=== PATIENT | female | born 1970 | race Caucasian/White ===

== ENCOUNTER 2017-08-11 10:05 | Day surgery (SDC) | payer BC ==
[~2017-08-11 10:05] MED LIST: RINGER'S SOLUTION,LACTATED 1,000 ML IV PRN; ceFAZolin SODIUM 1 GM VIAL IV PRN
[2017-08-11] MEDS ORDERED: RINGER'S SOLUTION,LACTATED 1,000 ML IV ONE (11:00)
[2017-08-11] MEDS ORDERED: BUPIVACAINE HCL 50 ML VIAL IJ ONE (11:15)
--- NOTE | 2017-08-11 11:29 | OR ---
Operative Report - Dictated Report Narrative: Date: 08/11/2017 Physician: Lukas Houston M.D. Program Rep: Rodríguez Patton PA-C Preoperative diagnosis: Right long and ring Trigger fingers Postoperative diagnosis: Right long and ring Trigger fingers Procedure: Right long and ring finger A1 marko releases Anesthesia: MAC Plus local Complications: None Estimated blood loss: Minimal Tourniquet time: 9 Minutes with forearm esmarch band Specimens: None Retained implants: None Drains: None Indications: Mrs Bai Is a 46 year-old female who has been followed in my clinic with complaints of trigger fingers. Physical exam as demonstrated triggering of the fingers. Conservative measures have failed including but not limited to passage of time, activity modification, medications, and injections. The risks , benefits, and alternatives were discussed in clinic. The risks being bleeding , infection, nerve, tendon, blood vessel injury, persistent pain, wound competitions, need for additional procedures, and persistent symptoms. Consent was obtained in the clinic. Procedure: After marking the correct extremity in the preoperative holding area, a timeout was performed in the operating room. IV antibiotics consisting of Ancef were administered prior to the procedure. A forearm esmarch tourniquet was applied to the operative upper arm. The arm was exsanguinated and esmarch band was applied 0.5% Marcaine without epinephrine was infused into the projected incision site at the palmar flexion crease over the metacarpal phalangeal joints in line with the digits. Using loupe magnification, a transverse incision in the appropriate palmar flexion crease in line with the digits. Blunt dissection was carried down through the subcutaneous tissues using bipolar cautery for hemostasis. Care was taken to protect the digital nerves. Staying midline along the flexor tendon, the A1 marko was identified. A celeste was made in the proximal edge of the A1 marko and tenotomies were utilized in order to completely transect the A1 marko. Care was to stay midline and avoid transection of the A2 marko. Soft tissues overlying the flexor tendon proximal to the A1 marko were also released ensuring that there were no other compressive structures contributing to the triggering. The fingers were placed through range of motion and demonstrated no additional catching. The tendons were visualized and mobilized out of the wound, and did not demonstrate any gross pathology or masses that required debridement. The tendons were noted to be intact. Once was felt that we had decompressed the flexor tendons as they passed under the A1 marko, the tourniquet was removed. Hemostasis was obtained with pressure and bipolar cautery. There was good return of color and capillary refill to the digit. Additional half percent Marcaine without epinephrine was infused into the skin edges. The wound was thoroughly irrigated. The skin was closed with interrupted 4-0 nylon. Sterile dressings consisting of Xeroform, 4 x 4, and Chacorta were applied. All sponge, needle, blade, and instrument counts were correct prior to closing the wounds. The patient was awoken and transferred to the postanesthesia care unit in stable condition.
--- NOTE | 2017-08-11 11:30 | POSTOP NO ---
Date of Surgery: 08/11/17 Patient Tolerated the Procedure: Well Post Operative Diagnosis/Procedures: Manager Document Control: Rodríguez Patton PA-C Post-operative Diagnosis: Right long and ring trigger fingers Finding: Above Procedure: Right long and ring A1 marko trigger release Estimated Blood Loss: Minimal Specimens: None
[2017-08-11 12:49] VITALS: BP 108/61
== END 2017-08-11 10:06 | disposition home or self-care (01) ==
LOC: AMB 10:05
PROVIDERS: ATTEND Orthopaedic Surgery
PROC: 0LN70ZZ Release Right Hand Tendon, Open Approach (ICD-10-PCS; principal; 2017-08-11)
PROC: 0LN70ZZ Release Right Hand Tendon, Open Approach (ICD-10-PCS; 2017-08-11)
DX: M79.7 Fibromyalgia; F32.9 Major depressive disorder, single episode, unspecified; M65.331 Trigger finger, right middle finger; Z87.891 Personal history of nicotine dependence; E78.00 Pure hypercholesterolemia, unspecified; Z68.24 Body mass index [BMI] 24.0-24.9, adult; M65.341 Trigger finger, right ring finger; F41.9 Anxiety disorder, unspecified; G25.81 Restless legs syndrome